=== PATIENT | female | born 1970 | race African-American/Black ===

== ENCOUNTER 2018-04-27 20:52 | Emergency (ER) | payer SELFPAY ==
[~2018-04-27] VITALS: Ht 167.6 cm; Wt 99.8 kg
[2018-04-27] MEDS ORDERED: IPRATROPIUM BROMIDE 0.5 MG/2.5 ML NEBU. NEB ONE (22:45)
--- NOTE | 2018-04-27 22:46 | PHYS DOC ---
Past Medical History Past Medical History: No Pertinent History Past Surgical History: No Surgical History Alcohol Use: None Drug Use: None Adult General Chief Complaint Chief Complaint: SHORTNESS OF BREATH HPI HPI Patient is a 47 year old female who presents with shortness of breath. This started several days ago. There has been a cough. Patient is also been having some heartburn symptoms that improve with Rolaids. Some nausea and vomiting as well. No specific chest pain. Symptoms do not get worse with exertion. No foreign travel. [] Review of Systems Review of Systems Constitutional: Denies fever or chills [] Eyes: Denies change in visual acuity, redness, or eye pain [] HENT: Denies nasal congestion or sore throat [] Respiratory: See history of present illness[] Cardiovascular: No additional information not addressed in HPI [] GI: Denies abdominal pain, nausea, vomiting, bloody stools or diarrhea [] : Denies dysuria or hematuria [] Musculoskeletal: Denies back pain or joint pain [] Integument: Denies rash or skin lesions [] Neurologic: Denies headache, focal weakness or sensory changes [] Endocrine: Denies polyuria or polydipsia [] All other systems were reviewed and found to be within normal limits, except as documented in this note. Current Medications Current Medications Current Medications Medications (Trade) Dose Ordered Sig/Lala Start Time Stop Time Status Last Admin Dose Admin Ipratropium [place] (Atrovent) 0.5 mg 1X ONCE 04/27/18 22:45 04/27/18 22:46 DC 04/27/18 22:57 0.5 MG Allergies Allergies Allergies Coded Allergies Type Severity Reaction Last Updated Verified Unable to Assess 04/27/18 No Physical Exam Physical Exam Constitutional: Well developed, well nourished, no acute distress, non-toxic appearance. [] HENT: Normocephalic, atraumatic, bilateral external ears normal, oropharynx moist, no oral exudates, nose normal. [] Eyes: PERRLA, EOMI, conjunctiva normal, no discharge. [] Neck: Normal range of motion, no tenderness, supple, no stridor. [] Cardiovascular:Heart rate regular rhythm, no murmur [] Lungs & Thorax: Bilateral breath sounds clear to auscultation [] Abdomen: Bowel sounds normal, soft, no tenderness, no masses, no pulsatile masses. [] Skin: Warm, dry, no erythema, no rash. [] Back: No tenderness, no CVA tenderness. [] Extremities: No tenderness, no cyanosis, no clubbing, ROM intact, no edema. [] Neurologic: Alert and oriented X 3, normal motor function, normal sensory function, no focal deficits noted. [] Psychologic: Affect normal, judgement normal, mood normal. [] Current Patient Data Vital Signs Vital Signs Date Time Temp Pulse Resp B/P (MAP) Pulse Ox O2 Delivery O2 Flow Rate FiO2 04/27/18 23:00 100 Room Air 04/27/18 21:02 99.3 82 16 164/91 (115) 99.3 Lab Values Laboratory Tests Test 04/27/18 22:49 04/27/18 22:55 04/28/18 00:01 Influenza Type A Antigen Negative (NEGATIVE) Influenza Type B Antigen Negative (NEGATIVE) White Blood Count 7.1 x10^3/uL (4.0-11.0) Red Blood Count 5.55 x10^6/uL (3.50-5.40) H Hemoglobin 15.3 g/dL (12.0-15.5) Hematocrit 44.7 % (36.0-47.0) Mean Corpuscular Volume 81 fL (79-100) Mean Corpuscular Hemoglobin 28 pg (25-35) Mean Corpuscular Hemoglobin Concent 34 g/dL (31-37) Red Cell Distribution Width 14.2 % (11.5-14.5) Platelet Count 316 x10^3/uL (140-400) Neutrophils (%) (Auto) 30 % (31-73) L Lymphocytes (%) (Auto) 62 % (24-48) H Monocytes (%) (Auto) 6 % (0-9) Eosinophils (%) (Auto) 1 % (0-3) Basophils (%) (Auto) 1 % (0-3) Neutrophils # (Auto) 2.1 x10^3uL (1.8-7.7) Lymphocytes # (Auto) 4.4 x10^3/uL (1.0-4.8) Monocytes # (Auto) 0.4 x10^3/uL (0.0-1.1) Eosinophils # (Auto) 0.1 x10^3/uL (0.0-0.7) Basophils # (Auto) 0.1 x10^3/uL (0.0-0.2) D-Dimer (Dolores) < 0.27 ug/mlFEU Sodium Level 143 mmol/L (136-145) Potassium Level 3.4 mmol/L (3.5-5.1) L Chloride Level 104 mmol/L (98-107) Carbon Dioxide Level 27 mmol/L (21-32) Anion Gap 12 (6-14) Blood Urea Nitrogen 13 mg/dL (7-20) Creatinine 1.0 mg/dL (0.6-1.0) Estimated GFR (Cockcroft-Gault) 71.3 BUN/Creatinine Ratio 13 (6-20) Glucose Level 101 mg/dL (70-99) H Calcium Level 11.1 mg/dL (8.5-10.1) H Total Bilirubin 0.4 mg/dL (0.2-1.0) Aspartate Amino Transferase (AST) 17 U/L (15-37) Alanine Aminotransferase (ALT) 25 U/L (14-59) Alkaline Phosphatase 70 U/L (46-116) Creatine Kinase 265 U/L (26-192) H Creatine Kinase MB (Mass) 0.9 ng/mL (0.0-3.6) Creatine Kinase MB Relative Index 0.3 % (0-4) Troponin I Quantitative < 0.017 ng/mL (0.000-0.055) VN-Dep-F-Type Natriuretic Peptide 1272 pg/mL (0-124) H Total Protein 8.6 g/dL (6.4-8.2) H Albumin 4.2 g/dL (3.4-5.0) Albumin/Globulin Ratio 1.0 (1.0-1.7) Segmented Neutrophils % 31 % (35-66) L Lymphocytes % 38 % (24-48) Atypical Lymphocytes % (Manual) 28 % (0-0) H Monocytes % 2 % (0-10) Eosinophils % 1 % (0-5) Platelet Estimate Adequate (ADEQUATE) Laboratory Tests 04/27/18 22:55 Laboratory Tests 04/27/18 22:55 EKG EKG EKG shows a sinus rhythm at 63 bpm, left axis, QTC of 452 MSEC, no ST elevation, [] Radiology/Procedures Radiology/Procedures CHEST PA LATERAL History: SHORT OF BREATH, CHEST TIGHTNESS, "VOID" IN CHEST, X 3 WEEKS Comparison: None. Findings: The cardiomediastinal silhouette is normal. Pulmonary vasculature is normal. The lungs are clear. No pleural effusion or pneumothorax is seen. There is no acute bone abnormality. IMPRESSION: No acute cardiopulmonary process. [] Course & Med Decision Making Course & Med Decision Making Pertinent Labs and Imaging studies reviewed. (See chart for details) ED course: Patient arrived, was placed in bed, tolerated exam well. Patient is maintained normal oxygen saturation. After the return of lab and imaging studies , these were discussed with the patient who voiced understanding. All questions were answered. Medical decision making: There is no evidence of an acute coronary syndrome, no hypoxia, status asthmaticus, no evidence of PE[] Dragon Disclaimer Dragon Disclaimer This electronic medical record was generated, in whole or in part, using a voice recognition dictation system. Departure Departure Impression: Primary Impression: Shortness of breath Disposition: HOME, SELF-CARE Condition: GOOD Referrals: NO PCP (PCP) Patient Instructions: Nausea and Vomiting, Shortness of Breath Additional Instructions: Follow-up with your regular doctor in 2 days. If you do not have a regular doctor, list of local low-cost clinics will be provided for you. Return to the ER if worsening difficult to breathing, unable to tolerate liquids, or any other concerns Scripts Albuterol Sulfate (VENTOLIN HFA INHALER) 18 Gm Hfa.aer.ad 2 PUFF INH Q4HRS for FOR ASTHMA, #1 INHALER 0 Refills Prov: NIKOLAY BENOIT DO 04/28/18 Ondansetron Hcl (ZOFRAN) 4 Mg Tablet 4 MG PO PRN TID PRN for NAUSEA/VOMITING, #15 nausea/vomiting Prov: NIKOLAY BENOIT DO 04/28/18 NIKOLAY BENOIT DO Apr 27, 2018 22:46
[2018-04-27 23:09] LABS: BASO # 0.1 x10^3/uL (0.0-0.2); BASO % 1 % (0-3); EOS # 0.1 x10^3/uL (0.0-0.7); EOS % 1 % (0-3); HEMATOCRIT 44.7 % (36.0-47.0); HEMOGLOBIN 15.3 g/dL (12.0-15.5); LYMPH # 4.4 x10^3/uL (1.0-4.8); LYMPH % 62 % (24-48); MEAN CORPUSCULAR HEMOGLOBIN 28 pg (25-35); MEAN CORPUSCULAR HGB CONC 34 g/dL (31-37); MEAN CORPUSCULAR VOLUME 81 fL (79-100); MONO # 0.4 x10^3/uL (0.0-1.1); MONO % 6 % (0-9); NEUT # 2.1 x10^3uL (1.8-7.7); NEUT % 30 % (31-73); PLATELET COUNT 316 x10^3/uL (140-400); RED BLOOD COUNT 5.55 x10^6/uL (3.50-5.40); RED CELL DISTRIBUTION WIDTH 14.2 % (11.5-14.5); WHITE BLOOD COUNT 7.1 x10^3/uL (4.0-11.0)
[2018-04-27 23:14] LABS: CALCIUM 11.1 mg/dL (8.5-10.1); GFR 71.3; POTASSIUM 3.4 mmol/L (3.5-5.1)
[2018-04-27 23:20] LABS: ALBUMIN 4.2 g/dL (3.4-5.0); TOTAL BILIRUBIN 0.4 mg/dL (0.2-1.0); TOTAL PROTEIN 8.6 g/dL (6.4-8.2)
[2018-04-27 23:25] LABS: INFLUENZA A PATIENT NEGATIVE (NEGATIVE); INFLUENZA B PATIENT NEGATIVE (NEGATIVE)
--- NOTE | 2018-04-27 23:53 | RAD ---
CHEST PA LATERAL History: SHORT OF BREATH, CHEST TIGHTNESS, "VOID" IN CHEST, X 3 WEEKS Comparison: None. Findings: The cardiomediastinal silhouette is normal. Pulmonary vasculature is normal. The lungs are clear. No pleural effusion or pneumothorax is seen. There is no acute bone abnormality. IMPRESSION: No acute cardiopulmonary process. Electronically signed by: Levon Ruffin MD (04/27/2018 11:48 PM) [id number]
[2018-04-28 00:09] LABS: % ATYL 28 % (0-0); % EOS 1 % (0-5); % LYMPHS 38 % (24-48); % MONOS 2 % (0-10); % SEGS 31 % (35-66); PLT ESTIMATE ADEQUATE (ADEQUATE)
[2018-04-28] MEDS ORDERED: VENTOLIN HFA18 GM INH (00:37)
[2018-04-28] MEDS ORDERED: ONDA4TAB7 PO (00:37)
[2018-04-28 00:46] VITALS: BP 159/76
--- NOTE | 2018-04-28 06:51 | EKG ---
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
== END 2018-04-28 00:46 | disposition home or self-care (01) ==
LOC: ER 20:52
DX: R06.02 Shortness of breath (principal); R05 Cough; R11.2 Nausea with vomiting, unspecified; R12 Heartburn
CPT/HCPCS: 36415; 71046; 80053; 82553; 83880; 84484; 85007; 85025; 85379; 87804; 93005; 94640; 99284; J7644